=== PATIENT | male | born 1990 | race Caucasian/White ===

== ENCOUNTER 2016-12-13 01:46 | Emergency (ER) | payer MEDICAID, OTHER ==
[~2016-12-13] VITALS: Ht 167.6 cm; Wt 63.0 kg
[2016-12-13] MEDS ORDERED: MORPHINE SULFATE 4 MG/ML CPJ (NOT FOR IM USE) IV ONE (03:15)
[2016-12-13] MEDS ORDERED: ONDANSETRON HCL 4MG/2ML VIAL IV ONE (03:15)
[2016-12-13 06:32] VITALS: BP 97/69
== END 2016-12-13 06:39 | disposition home or self-care (01) ==
LOC: ER 01:49
DX: S06.9X1A Unspecified intracranial injury with loss of consciousness of 30 minutes or less, initial encounter (principal); M54.2 Cervicalgia; F17.210 Nicotine dependence, cigarettes, uncomplicated; Z71.6 Tobacco abuse counseling; Z98.890 Other specified postprocedural states; Z91.041 Radiographic dye allergy status; Y04.0XXA Assault by unarmed brawl or fight, initial encounter; Y92.018 Other place in single-family (private) house as the place of occurrence of the external cause
CPT/HCPCS: 70450; 99284; 99406; J2270; J2405; Z7610

== ENCOUNTER 2016-12-15 14:05 | Emergency (ER) | payer OTHER | END 2016-12-15 14:55 | disposition left against medical advice (07) | LOC: ER 14:51 | DX: Z53.21 Procedure and treatment not carried out due to patient leaving prior to being seen by health care provider (principal) ==

== ENCOUNTER 2020-06-21 01:44 | Emergency (ER) | payer SELFPAY ==
[~2020-06-21] VITALS: Ht 175.3 cm; Wt 60.0 kg
[2020-06-21 01:58] VITALS: BP 121/80
[2020-06-21] MEDS ORDERED: DEXAMETHASONE 4MG TABLET PO ONE (02:30)
== END 2020-06-21 03:01 | disposition home or self-care (01) ==
LOC: ER 01:44
DX: H60.93 Unspecified otitis externa, bilateral (principal); H69.83 Other specified disorders of Eustachian tube, bilateral
CPT/HCPCS: 99283; J8540

== ENCOUNTER 2021-12-01 17:51 | Emergency (ER) | payer MEDICAID ==
[~2021-12-01] VITALS: Ht 175.3 cm; Wt 65.0 kg
[2021-12-01 19:12] VITALS: BP 119/73
== END 2021-12-01 19:12 | disposition home or self-care (01) ==
LOC: ER 17:51
DX: T28.0XXA Burn of mouth and pharynx, initial encounter (principal); F17.210 Nicotine dependence, cigarettes, uncomplicated; Z91.041 Radiographic dye allergy status; X08.8XXA Exposure to other specified smoke, fire and flames, initial encounter; Y93.89 Activity, other specified; Y92.018 Other place in single-family (private) house as the place of occurrence of the external cause
CPT/HCPCS: 99281

== ENCOUNTER 2024-08-19 10:28 | Emergency (ER) | payer SELFPAY ==
[~2024-08-19] VITALS: Ht 177.8 cm; Wt 75.0 kg
[2024-08-19 10:32] VITALS: BP 124/72; PULSE 78; RESP 18; TEMP 97.9; O2SAT 100
[2024-08-19] MEDS ORDERED: TETRACAINE 0.5% OPHTH DROPS 4ML BOTHEYE ONE (10:45)
[2024-08-19] MEDS ORDERED: FLUORESCEIN SODIUM 1MG/STRIP BOTHEYE ONE (10:45)
[2024-08-19] MEDS ORDERED: PROP1DRO2 MT (11:28)
== END 2024-08-19 11:38 | disposition home or self-care (01) ==
LOC: ER 10:38
DX: H53.141 Visual discomfort, right eye (principal); Z01.00 Encounter for examination of eyes and vision without abnormal findings
CPT/HCPCS: 99283